=== PATIENT | female | born 1950 | race Caucasian/White ===

== ENCOUNTER → 2018-03-19 | Day surgery (SDC) | payer OTHER, MEDICARE ==
[~2018-03-19] VITALS: Ht 160 cm; Wt 59.0 kg
[~2018-03-19] MED LIST: CARAFATE1 GM/10 M1 PO; NEXIUM40 M1 PO
--- NOTE | 2018-03-19 10:18 | History & Physical Pre-Op ---
General Information and HPI MD Statement: I have seen and personally examined AMI GOMEZ and documented this H&P. The patient is a 67 year old F who presented with a patient stated chief complaint of [abscess, left foot with superficial foreign body inclusion in the subcutaneous fat]. Preoperative diagnosis: Abscess, left foot. Foreign body inclusion, left foot. Planned procedure: Incision and drainage of the left foot, removal of foreign body, left foot, excisional debridement of all associated nonviable skin and soft tissue Planned hemostasis: 250 mmHg pneumatic left ankle cuff Planned anesthesia: Monitored anesthesia care combined with a 0.5% Marcaine left ankle block Source of Information: patient, family Exam Limitations: no limitations History of Present Illness: This is a 67-year-old female who was referred to me by Dr. Adrian Sheikh 2 days ago for pain and swelling in the left midfoot. The patient reports that she had recently taken a trip to the [facility], and she identified stepping on a stingray on December 25. She reports seeking immediate medical treatment at the time, where the injury was cleaned out and she was placed on a brief course of ciprofloxacin and doxycycline. She reports that the injury initially healed uneventfully, but that over the past month or so she has had increasing recurrent redness and swelling focally in the area of her initial injury, which prompted her to seek additional medical attention upon her return home to [place], where she had seen Dr. Sheikh on March 17, who examined her and determined that she needed prompt incision and drainage, and this was set up on an outpatient basis for today. Allergies/Medications Allergies: Coded Allergies: No Known Allergies (03/18/18) Home Med list Esomeprazole (Nexium) 40 MG CAPSULE.DR 1 CAP PO BID ESOPHAGITIS Sucralfate (Carafate) 1 GRAM/10 ML ORAL.SUSP 10 ML PO 4 TIMES/DAY ESOPHAGITIS 1 hour before food and bedtime Compliance With Home Meds: GOOD Past History Medical History Neurological: NONE EENT: NONE Cardiovascular: NONE Respiratory: NONE Gastrointestinal: GERD Hepatic: NONE Renal: NONE Musculoskeletal: NONE Psychiatric: NONE Endocrine: NONE Blood Disorders: NONE Cancer(s): NONE Surgical History Pertinent Surgical History: non-contributory Review of Systems Review of Systems: A 14 point review of systems was performed, and was found to be negative apart from the patient's complaints described above in the history of present illness. Exam & Diagnostic Data Last 24 Hrs of Vital Signs/I&O See chart Physical Exam: Patient has palpable pedal pulses, normal temperature gradient warm to cool proximal to distal in both lower extremities equally. Capillary refill time is 2 seconds across all 10 toes. Peripheral sensation is intact on proprioceptive and light touch examinations. 5 out of 5 muscle power in all lower extremity compartments bilaterally. There is no maceration, no open lesions. On the plantar medial aspect of the left midfoot just superior to the glabrous junction at the level of the tarsometatarsal joints there is a 2 cm x 1 cm erythematous and edematous nodule with significant tenderness upon light palpation. Last 24 Hrs of Labs/Jayson: See chart Assessment/Plan Assessment/Plan: 67-year-old female with residual small abscess, possible residual foreign body inclusion from an injury related to stepping on a stingray from December 25. Patient was seen and evaluated at bedside this morning in the preoperative holding area. I explained all the risks and benefits of the procedures to be performed, made no guarantees about their outcome. Patient and her accompanying were both abundantly informed that I will be relocating after the end of this month, and produced informed consent in written form. The first postoperative visit will be with me on March 23, and her subsequent care will be with Walker Garcia DPM thereafter. The patient will be placed in a well-padded dry sterile dressing, and will be able to weight-bear as tolerated in a flat surgical shoe with a cane, and should be gait trained prior to discharge by a member of the physical therapy team or nursing team. The patient will be given prescriptions for doxycycline 100 mg twice daily 14 days, and Percocet 5/325 1 tab every 4-6 hours as needed for 5 days. I instructed the patient that if she achieves pain relief with [id number] Tylenol alone as directed that she may substitute this for the Percocet due to the minor nature of the procedure. Patient was instructed to leave the bandage on, and she will likely not require day-to-day maintenance of the bandage. She is to follow-up on the morning of March 23 with me, where a transition of care will be performed thereafter. As Ranked By This Provider Problem List: 1. Foreign body in left foot with infection Copies To: Walker Garcia DPM
--- NOTE | 2018-03-19 11:47 | Operative Report ---
Operative/Inv Procedure Report Surgery Date: 03/19/18 Name of Procedure: Incision and drainage, left midfoot, single bursa Pre-Operative Diagnosis: Cellulitis and abscess, left midfoot, possible retained foreign body Post-Operative Diagnosis: Cellulitis and abscess, left midfoot, possible retained foreign body Estimated Blood Loss: scant Surgeon/Corporate Risk Analyst: Ronald Hyde DPM Anesthesia: moderate sedation, 18 cc 50/50 mixture 2% Lidocaine plain/0.25% Marcaine plain preop, 9cc 2% Lidocaine intraop Drains: None Specimens: One specimen to pathology: Skin and soft tissue left foot Microbiology: None Tourniquet: 250 mmHg pneumatic left ankle cuff 12 minutes Complications: None Condition: Stable Operative Indication: This is a 67-year-old female in good overall health who was seen and evaluated this morning for pain and swelling with a palpable nodule in the plantar medial aspect of the left midfoot. She reports having stepped on a stingray on December 25 while vacationing in [place], where she was initially treated with an incision and drainage and a brief course of ciprofloxacin and doxycycline by a local physician. She reported that the area healed uneventfully, but afterward over the past 3-4 weeks she experienced recurrence of the edema and erythema nodular tenderness. She reported Dr. Adrian Sheikh's office on March 17, who examined her and determined that she needed a prompt incision and drainage, and this was set up on an outpatient basis for this morning. Operative/Procedure Note Note: After the left foot was prepped and draped in the usual sterile manner with chlorhexidine, attention was directed to the plantar medial aspect of the left midfoot. A palpable nodule of edema and erythema measuring approximately 1 cm in diameter was visualized. An elliptical incision was made with a sterile #15 blade parallel to the skin lines in this area just superior to the glabrous junction 3 cm superior to inferior approximately 8 mm anterior to posterior. This wedge of skin and superficial soft tissue was removed using a 1 to greens picker in a #15 blade. A small amount of serous drainage was identified. The superficial tissues were then explored using iris scissor and a hemostat alternately. No purulence, no granulation, and no foreign objects were found in the area of the injury. The ellipse was sent as a skin and soft tissue specimen for pathology. The wound was then irrigated using cystoscopy tubing with a 3 L combination of normal saline and bacitracin solution. With no further clinical signs of infection or foreign body retention, the incision was closed using 4-0 nylon sutures in an interrupted horizontal mattress technique. Surgical wound was then dressed with Adaptic, abdominal pads, and abundance of sterile cast padding, and a 4 inch Jarod bandage. Discharge Disposition: Same Day Admissions Additional Comments: The patient was escorted to the postanesthesia care unit same dissection in no apparent distress, vital signs stable, neurovascular status intact with full capillary refill to all 5 digits on the operative side. Patient may weight-bear as tolerated in a flat surgical shoe with a padded dressing, and should be gait trained prior to discharge. The patient has a small supply of Percocet 5/325 for postoperative pain control. The patient has a 2 week prescription for doxycycline for skin and soft tissue coverage of the affected area. The patient is to follow-up with me on March 23 at the [facility] outpatient wound care center. She has been made abundantly aware as well as her that I will be relocating from the area after March 23, and that her further postoperative care after the first visit will be done with Walker Garcia DPM. I informed the patient that although a small collection was identified just deep to the area of tenderness, but no foreign objects were identified, no purulence was identified, and no granulation tissue suggestive of a retained foreign body was identified. I informed the patient that she is to be monitored for a minimum of 4 weeks on an outpatient basis to ensure no recurrence, then further workup will be performed if she continues to have symptoms. CC: Walker Garcia DPM
== END ==
LOC: STS 02:05
DX: I96 Gangrene, not elsewhere classified (principal); D21.22 Benign neoplasm of connective and other soft tissue of left lower limb, including hip; Z87.821 Personal history of retained foreign body fully removed; K21.0 Gastro-esophageal reflux disease with esophagitis; E07.9 Disorder of thyroid, unspecified
CPT/HCPCS: J0131; J1100; J2001; J2250; J2405